=== PATIENT | male | born 1970 | race Caucasian/White ===

== ENCOUNTER 2016-10-06 13:26 | Inpatient (IN) | payer OTHER ==
[~2016-10-06] VITALS: Ht 185.4 cm; Wt 114.8 kg
[2016-10-06 13:55] LABS: HEMOGLOBIN 16.4 gm/dl (14.0-17.5); RED BLOOD COUNT 5.32 M/UL (4.20-5.50); WHITE BLOOD COUNT 7.1 K/UL (4.5-11.0)
[2016-10-06 14:17] LABS: BUN/CREATININE RATIO 9 (0-10)
[2016-10-06] MEDS ORDERED: FISH OIL 1,2001 EAC1 PO (16:38)
[2016-10-06] MEDS ORDERED: NITROSTAT 0.40.4 MG SL (16:38)
[2016-10-06 23:43] LABS: HEMOGLOBIN 14.5 gm/dl (14.0-17.5); WHITE BLOOD COUNT 8.5 K/UL (4.5-11.0)
[2016-10-06 23:50] LABS: RED BLOOD COUNT 4.71 M/UL (4.20-5.50)
[2016-10-07 00:03] LABS: BUN/CREATININE RATIO 11 (0-10)
[2016-10-07 03:40] LABS: HEMOGLOBIN 14.2 gm/dl (14.0-17.5); RED BLOOD COUNT 4.67 M/UL (4.20-5.50); WHITE BLOOD COUNT 10.1 K/UL (4.5-11.0)
[2016-10-07 04:10] LABS: BUN/CREATININE RATIO 11 (0-10)
[2016-10-08] MEDS ORDERED: BRILINTA 90 MG90 MG PO (09:43)
[2016-10-08] MEDS ORDERED: NITROSTAT0.4 MG SL (09:47)
[2016-10-08] MEDS ORDERED: LOPRESSOR 25 MG25 MG PO (09:48)
[2016-10-08] MEDS ORDERED: ASPIRIN81 MG PO (09:48)
[2016-10-08] MEDS ORDERED: LIPITOR80 MG PO (09:49)
[2016-10-08] MEDS ORDERED: LISINOPRIL2.5 MG PO (09:49)
== END 2016-10-08 10:30 | disposition home or self-care (01) | DRG 246 ==
LOC: ER1 13:26 → ZEROF 14:00 → CCU 16:32
PROVIDERS: Emergency Medicine; ADMIT Internal Medicine
PROC: 027135Z Dilation of Coronary Artery, Two Arteries with Two Drug-eluting Intraluminal Devices, Percutaneous Approach (ICD-10-PCS; principal; 2016-10-06)
PROC: 02703ZZ Dilation of Coronary Artery, One Artery, Percutaneous Approach (ICD-10-PCS; 2016-10-06)
PROC: 02C03ZZ Extirpation of Matter from Coronary Artery, One Artery, Percutaneous Approach (ICD-10-PCS; 2016-10-06)
PROC: 4A023N7 Measurement of Cardiac Sampling and Pressure, Left Heart, Percutaneous Approach (ICD-10-PCS; 2016-10-06)
PROC: B2111ZZ Fluoroscopy of Multiple Coronary Arteries using Low Osmolar Contrast (ICD-10-PCS; 2016-10-06)
PROC: B2151ZZ Fluoroscopy of Left Heart using Low Osmolar Contrast (ICD-10-PCS; 2016-10-06)
PROC: 3E033PZ Introduction of Platelet Inhibitor into Peripheral Vein, Percutaneous Approach (ICD-10-PCS; 2016-10-06)
PROC: 4A023N7 Measurement of Cardiac Sampling and Pressure, Left Heart, Percutaneous Approach (ICD-10-PCS; 2016-10-06)
PROC: B2111ZZ Fluoroscopy of Multiple Coronary Arteries using Low Osmolar Contrast (ICD-10-PCS; 2016-10-06)
DX: T82.867A Thrombosis due to cardiac prosthetic devices, implants and grafts, initial encounter (principal); I21.19 ST elevation (STEMI) myocardial infarction involving other coronary artery of inferior wall; I23.7 Postinfarction angina; I47.2 Ventricular tachycardia; I25.118 Atherosclerotic heart disease of native coronary artery with other forms of angina pectoris; Y71.3 Surgical instruments, materials and cardiovascular devices (including sutures) associated with adverse incidents; J44.9 Chronic obstructive pulmonary disease, unspecified; R00.1 Bradycardia, unspecified; I10 Essential (primary) hypertension; E78.5 Hyperlipidemia, unspecified; F17.200 Nicotine dependence, unspecified, uncomplicated; I25.2 Old myocardial infarction; Z72.3 Lack of physical exercise; Z95.820 Peripheral vascular angioplasty status with implants and grafts; Z79.899 Other long term (current) drug therapy; Z82.49 Family history of ischemic heart disease and other diseases of the circulatory system
CPT/HCPCS: ECHO; 36415; 80048; 80053; 80061; 82550; 82553; 83036; 83690; 83874; 84484; 85025; 85027; 85347; 85610; 85730; 93005; 93306; 96374; 99291; C1725; C1757; C1769; C1874; C1887; C9600; C9601; J0461; J0583; J1327; J1644; J2250; J2370; J3010; J7040; Q9965

== ENCOUNTER 2020-07-12 03:18 | Emergency (ER) | payer OTHER ==
[~2020-07-12 03:18] MED LIST: ASPIRIN81 MG PO; BRILINTA 90 MG90 MG PO; FISH OIL 1,2001 EAC1 PO; LIPITOR80 MG PO; LISINOPRIL2.5 MG PO; LOPRESSOR 25 MG25 MG PO; NITROSTAT 0.40.4 MG SL; NITROSTAT0.4 MG SL
[2020-07-12 03:46] LABS: HEMOGLOBIN 16.5 gm/dl (14.0-17.5); RED BLOOD COUNT 5.09 M/UL (4.20-5.50)
[2020-07-12 04:07] LABS: BUN/CREATININE RATIO 20 (0-10)
== END 2020-07-12 06:45 | disposition home or self-care (01) ==
LOC: ER1 03:18
PROVIDERS: Emergency Medicine
DX: R07.2 Precordial pain (principal); R51.9 Headache, unspecified; I25.2 Old myocardial infarction; I25.10 Atherosclerotic heart disease of native coronary artery without angina pectoris; E11.9 Type 2 diabetes mellitus without complications; F17.200 Nicotine dependence, unspecified, uncomplicated
CPT/HCPCS: 71045; 80053; 82550; 82553; 83874; 84484; 85025; 85610; 85730; 93005; 99285

== ENCOUNTER 2021-06-29 05:11 | Inpatient (IN) | payer MEDICARE, OTHER ==
[~2021-06-29] VITALS: Ht 185.4 cm; Wt 114.0 kg
[2021-06-29 05:44] LABS: HEMOGLOBIN 16.8 gm/dl (14.0-17.5); RED BLOOD COUNT 5.26 M/UL (4.20-5.50); WHITE BLOOD COUNT 10.3 K/UL (4.5-11.0)
[2021-06-29 06:05] LABS: BUN/CREATININE RATIO 12 (0-10)
[2021-06-29] MEDS ORDERED: SILDENAFIL20 MG PO (16:27)
[2021-06-29] MEDS ORDERED: ASPIRIN EC325 MG PO (16:28)
[2021-06-29] MEDS ORDERED: NEURONTIN600 MG PO (16:31)
[2021-06-29 16:32] LABS: HEMOGLOBIN 16.1 gm/dl (14.0-17.5); RED BLOOD COUNT 5.14 M/UL (4.20-5.50); WHITE BLOOD COUNT 10.5 K/UL (4.5-11.0)
[2021-06-29] MEDS ORDERED: CYCLOBENZAPRINE10 MG PO (16:32)
[2021-06-29] MEDS ORDERED: PLAVIX75 MG PO (16:32)
[2021-06-29] MEDS ORDERED: ACETAMINOPHEN325 MG PO (16:33)
[2021-06-29] MEDS ORDERED: DOCUSATE SODIU100 MG PO (16:33)
[2021-06-29] MEDS ORDERED: CRESTOR40 MG PO (16:34)
[2021-06-29] MEDS ORDERED: MECLIZINE HCL12.5 MG PO (16:34)
[2021-06-29] MEDS ORDERED: PROTONIX 40 MG40 M1 PO (16:34)
[2021-06-29] MEDS ORDERED: NITROSTAT0.4 MG SL (16:35)
[2021-06-29 16:57] LABS: BUN/CREATININE RATIO 18 (0-10)
[2021-06-30 03:19] LABS: HEMOGLOBIN 15.3 gm/dl (14.0-17.5); RED BLOOD COUNT 4.98 M/UL (4.20-5.50); WHITE BLOOD COUNT 9.3 K/UL (4.5-11.0)
[2021-06-30 04:28] LABS: BUN/CREATININE RATIO 15 (0-10)
[2021-06-30] MEDS ORDERED: BRILINTA 90 MG90 MG PO (13:20)
[2021-06-30] MEDS ORDERED: LOPRESSOR 25 MG25 MG PO (13:20)
[2021-06-30] MEDS ORDERED: ASPIRIN EC81 MG PO (13:20)
== END 2021-06-30 14:02 | disposition home or self-care (01) | DRG 246 ==
LOC: ER1 05:11 → PROG CARE 12:00 → CDU 12:00 → CCU 15:00 → PROG CARE 23:47
PROVIDERS: Emergency Medicine; ADMIT Internal Medicine Interventional Cardiology
PROC: 027034Z Dilation of Coronary Artery, One Artery with Drug-eluting Intraluminal Device, Percutaneous Approach (ICD-10-PCS; 2021-06-29)
PROC: 4A023N7 Measurement of Cardiac Sampling and Pressure, Left Heart, Percutaneous Approach (ICD-10-PCS; 2021-06-29)
PROC: B2111ZZ Fluoroscopy of Multiple Coronary Arteries using Low Osmolar Contrast (ICD-10-PCS; 2021-06-29)
PROC: B24BZZZ Ultrasonography of Heart with Aorta (ICD-10-PCS; principal; 2021-06-30)
DX: T82.855A Stenosis of coronary artery stent, initial encounter (principal); I21.19 ST elevation (STEMI) myocardial infarction involving other coronary artery of inferior wall; I25.10 Atherosclerotic heart disease of native coronary artery without angina pectoris; I10 Essential (primary) hypertension; E78.5 Hyperlipidemia, unspecified; R63.5 Abnormal weight gain; Z20.822 Contact with and (suspected) exposure to COVID-19; G89.29 Other chronic pain; K59.00 Constipation, unspecified; F19.99 Other psychoactive substance use, unspecified with unspecified psychoactive substance-induced disorder; K21.9 Gastro-esophageal reflux disease without esophagitis; F17.210 Nicotine dependence, cigarettes, uncomplicated; F15.90 Other stimulant use, unspecified, uncomplicated; Z82.49 Family history of ischemic heart disease and other diseases of the circulatory system; Z91.14 Patient's other noncompliance with medication regimen; Z98.52 Vasectomy status; Z98.890 Other specified postprocedural states; Z79.899 Other long term (current) drug therapy; Z79.82 Long term (current) use of aspirin; Z56.0 Unemployment, unspecified; Z68.29 Body mass index [BMI] 29.0-29.9, adult
CPT/HCPCS: ECHO; 36415; 80048; 82550; 82553; 83735; 83874; 84484; 85025; 85027; 85347; 85610; 85730; 93005; 93306; 96374; 96375; 99285; C1725; C1769; C1874; C1887; J0461; J1644; J2270; J2370; J2405; J3246; J7040; Q9965; U0002